=== PATIENT | female | born 1995 | race Caucasian/White ===

== ENCOUNTER → 2017-05-13 | Outpatient (CLI) | payer BC | LOC: LAB 14:29 | DX: L70.0 Acne vulgaris (principal) | CPT/HCPCS: 84703 ==

== ENCOUNTER → 2017-06-11 | Outpatient (CLI) | payer BC | LOC: LAB 08:03 | PROVIDERS: ATTEND Dermatology | DX: Z79.899 Other long term (current) drug therapy (principal) | CPT/HCPCS: 84703 ==

== ENCOUNTER → 2017-07-13 | Outpatient (CLI) | payer BC | LOC: LAB 11:14 | PROVIDERS: ATTEND Physician Assistant | DX: L70.0 Acne vulgaris (principal) | CPT/HCPCS: 84703 ==

== ENCOUNTER → 2017-08-12 | Outpatient (CLI) | payer BC | LOC: LAB 08:22 | PROVIDERS: ATTEND Dermatology | DX: L70.0 Acne vulgaris (principal) | CPT/HCPCS: 84703 ==

== ENCOUNTER → 2018-10-14 | Outpatient (CLI) | payer BC ==
[~2018-10-14] MED LIST: IOHEXOL 350 MG/ML 100 ML (OMNIPAQUE 350) VIAL IV ONE; NS 100 ML (IVPB) BAG IV ONE; RECEIVED CONTRAST (Hold Metformin) IV SCH
--- NOTE | 2018-10-14 14:16 | Diagnostic Imaging Report ---
PROCEDURE: CT left lower extremity with contrast. TECHNIQUE: Multiple axial images of the left lower extremity were obtained after intravenous administration of iodinated contrast. INDICATION: Fall 2 weeks ago with left thigh pain and firmness as well as left thigh abrasion. This study is performed to evaluate for a fluid collection. FINDINGS: A BB was placed at the lateral aspect of the left thigh. The subcutaneous tissues are unremarkable. The musculature of the left thigh appears normal. No fluid collection is seen. No gas collection is identified. Limited images of the left femur are unremarkable without evidence of fracture. No abnormal enhancement is seen following contrast administration. IMPRESSION: Unremarkable CT through the left upper thigh. No fluid collection or any other abnormality is identified. The report was called to ZBIGNIEW Oden, by WILLAM@ 2:16 PM. Dictated by: Dictated on workstation # [id number]
== END ==
LOC: RAD 12:58
PROVIDERS: ATTEND Nurse Practitioner Family
DX: S70.311A Abrasion, right thigh, initial encounter (principal); W19.XXXA Unspecified fall, initial encounter
CPT/HCPCS: 73701